=== PATIENT | male | born 1955 | race Caucasian/White ===

== ENCOUNTER 2016-12-25 22:36 | Emergency (ER) | payer MEDICARE, OTHER ==
[~2016-12-25] VITALS: Ht 170.2 cm; Wt 56.7 kg
[~2016-12-25 22:36] MED LIST: BACLOFEN10 MG ORAL; KEPPRA500 MG ORAL; NEURONTIN100 MG ORAL; TIVICAY50 MG ORAL
[2016-12-25] MEDS ORDERED: levETIRAcetam 500 MG in D5W 110 ML IVPB ONE (23:15)
[2016-12-25] MEDS ORDERED: levETIRAcetam 500mg vial IV ONE (23:28)
--- NOTE | 2016-12-26 00:09 | Emergency Room Report ---
History of Present Illness General Chief Complaint: Seizure Source: Patient, EMS Present Illness HPI Is a 61-year-old male with a history of seizure. He also is very contracted. Also has history of chronic pain on methadone. He presents with chief complaint of a witnessed seizure. Tonic-clonic in nature. Lasting one to 2 minutes. Patient admit to using methamphetamine yesterday and missed a dose of his Keppra today. Denies any other complaint. No pain. Allergies: Coded Allergies: No Known Allergies (Unverified , 08/07/16) Patient History Past Medical History: see triage record, old chart reviewed Past Surgical History: other Pertinent Family History: none Social History: Denies: smoking Immunizations: other Reviewed Nursing Documentation: PMH: Agreed, PSxH: Agreed Nursing Documentation-PMH Hx Cerebrovascular Accident: Yes Hx Seizures: Yes - HIV Review of Systems Eye: Denies: blurred vision, eye pain ENT: Denies: ear pain, nose congestion, throat swelling Respiratory: Denies: cough, shortness of breath Cardiovascular: Denies: chest pain, palpitations Gastrointestinal: Denies: abdominal pain, diarrhea, nausea, vomiting Musculoskeletal: Denies: back pain, joint pain Skin: Denies: rash Neurological: Denies: headache, numbness Endocrine: Denies: increased thirst, increased urine Hematologic/Lymphatic: Denies: easy bruising All Other Systems: negative except mentioned in HPI Physical Exam Vital Signs Date Time Temp Pulse Resp B/P Pulse Ox O2 Delivery O2 Flow Rate FiO2 12/25/16 22:30 97.9 100 18 116/60 99 Room Air vitals normal Sp02 EP Interpretation: reviewed, normal General Appearance: well appearing, no apparent distress, alert Head: normocephalic, atraumatic Eyes: bilateral eye EOMI, bilateral eye PERRL ENT: hearing grossly normal, normal pharynx Neck: full range of motion, supple, no meningismus Respiratory: chest non-tender, lungs clear, normal breath sounds Cardiovascular #1: regular rate, rhythm, no murmur Gastrointestinal: normal bowel sounds, non tender, no mass, no organomegaly, no bruit, non-distended Musculoskeletal: back normal Neurologic: alert, oriented x3, other - Patient is contracted, bent at the waist Psychiatric: mood/affect normal Skin: warm/dry Medical Decision Making Diagnostic Impression: Primary Impression: Epileptic seizure, generalized Additional Impression: Methamphetamine abuse ER Course Patient presents with seizure secondary to noncompliance with medication from drug abuse. We'll discharge home after loading with Keppra. Last Vital Signs Date Time Temp Pulse Resp B/P Pulse Ox O2 Delivery O2 Flow Rate FiO2 12/25/16 23:07 100 18 Room Air 12/25/16 22:30 97.9 116/60 99 Status: improved Disposition: HOME, SELF-CARE Condition: Stable Patient Instructions: Seizure, Adult Additional Instructions: Abstain from drugs and alcohol. Followup with your DrJeff in 7 days. Take her medication regularly. Return if worse. LUKE PERRY M.D. Dec 26, 2016 00:09
[2016-12-26 00:41] VITALS: BP 118/62
[2016-12-26 04:48] VITALS: BP 118/62
== END 2016-12-26 04:50 | disposition home or self-care (01) ==
LOC: EDBD 22:36 → EMR 23:00
DX: G40.409 Other generalized epilepsy and epileptic syndromes, not intractable, without status epilepticus (principal); F15.10 Other stimulant abuse, uncomplicated; Z91.14 Patient's other noncompliance with medication regimen
CPT/HCPCS: 82962; 96374; 99284; J1953